=== PATIENT | male | born 1965 | race Caucasian/White ===

== ENCOUNTER 2017-08-21 14:07 | Observation (INO) | payer BC ==
[2017-08-21] MEDS ORDERED: LR 1,000 ML IV ONE (14:22)
[2017-08-21] MEDS ORDERED: LIDO/EPI 1% **for epidural** 30 ML SDV ONE (14:28)
[2017-08-21] MEDS ORDERED: OXYMETAZOLINE 30 ML NASAL SPRAY ONE ×2 (14:28→14:43)
--- NOTE | 2017-08-21 15:13 | PDANEPAE ---
ANE History of Present Illness 52 yo for septoplasty ANE Past Medical History - Cardiovascular History Hx Hypertension: No Hx Arrhythmias: No Hx Chest Pain: No Hx Coronary Artery / Peripheral Vascular Disease: No Hx CHF / Valvular Disease: No Hx Palpitations: No - Pulmonary History Hx COPD: No Hx Asthma/Reactive Airway Disease: No Hx Recent Upper Respiratory Infection: No Hx Oxygen in Use at Home: No Hx Sleep Apnea: Yes Pulmonary History Comment: SLEEP APNEA - Neurologic History Hx Cerebrovascular Accident: No Hx Seizures: No Hx Dementia: No - Endocrine History Hx Diabetes: No - Renal History Hx Renal Disorders: No - Liver History Hx Hepatic Disorders: No - Neurological & Psychiatric Hx Hx Neurological and Psychiatric Disorders: No - Cancer History Hx Cancer: No - Congenital Disorder History Hx Congenital Disorders: No - GI History Hx Gastrointestinal Disorders: No - Surgical History Prior Surgeries: GEN ABD, L HAND DIGIT AMPS, VASECTOMY ANE Review of Systems Review of Systems: - Exercise capacity METS (RN): 4 METS ANE Patient History - Allergies Allergies/Adverse Reactions: No Known Allergies Allergy (Verified 08/21/17 15:01) - Home Medications Home medications: home medication list seen and reviewed Home Medications: Sertraline HCl 75 mg PO 08/21/17 [Last Taken 08/20/17] - NPO status NPO Status: no food or drink >8 hours NPO Since - Liquids (Date): 08/21/17 NPO Since - Liquids (Time): 07:00 NPO Since - Solids (Date): 08/21/17 NPO Since - Solids (Time): 07:00 - Anes Hx Anes Hx: no prior problems - Smoking Hx Smoking Status: Never smoked - Family Anes Hx Family Hx Anesthesia Complications: NONE ANE Labs/Vital Signs - Vital Signs Blood Pressure: 154/93 Heart Rate: 93 Respiratory Rate: 18 O2 Sat (%): 99 Height: 2 ft 4.35 in Weight: 133.81 kg ANE Physical Exam - Airway Neck exam: FROM Mallampati Score: Class 3 Mouth exam: normal dental/mouth exam - Pulmonary Pulmonary: no respiratory distress - Cardiovascular Cardiovascular: regular rate and rhythym - ASA Status ASA Status: III ANE Anesthesia Plan Anesthesia Plan: general endotracheal anesthesia
[2017-08-21] MEDS ORDERED: MIDAZOLAM 2 MG/2 ML VIAL IVP ONE (15:14)
[2017-08-21] MEDS ORDERED: OXYMETAZOLINE 30 ML NASAL SPRAY EACHNARE ONE (15:14)
[2017-08-21] MEDS ORDERED: fentaNYL 100 MCG/2 ML INJ ONE (15:18)
[2017-08-21] MEDS ORDERED: REMIFENTANIL HCL 1 MG VIAL ONE (15:18)
[2017-08-21] MEDS ORDERED: PROPOFOL/EMULSION 500 MG/50 ML BOTTLE IV ONE (15:19)
--- NOTE | 2017-08-21 15:23 | PDHPUP ---
History & Physical Update H&P update statement: This history and physical update is based on an assessment of the patient which was completed after admission or registration (within 24 hours), but prior to the surgery/procedure. H&P update: H&P reviewed & patient examined, no change in patient's condition since H&P completed
--- NOTE | 2017-08-21 15:52 | POSTANESTH ---
Post Anesthetic Evaluation Cardiovascular Status: Tx Hyper/Hypo-tension Respiratory Status: Other, See Comment Level of Consciousness/Mental Status: Unconscious Pain Control: Adequate, Prn Tx Ordered Nausea/Vomiting Control: Adequate, Prn Tx Ordered Complications Possibly Related to Anesthesia: None Noted (in sicu on vent sedated)
[2017-08-21] MEDS: BACITRACIN ZINC 14.2 GM OINTTUBE TP ONE ×2 (16:11→17:07)
[2017-08-21] MEDS ORDERED: OXYMETAZOLINE 30 ML NASAL SPRAY EACHNARE PRN (16:52)
[2017-08-21] MEDS ORDERED: fentaNYL 100 MCG/2 ML INJ IVP PRN (16:55)
[2017-08-21] MEDS ORDERED: HYDROCODONE/APAP 5/325 TAB PO PRN ×2 (16:55→18:57)
[2017-08-21] MEDS ORDERED: ONDANSETRON 4 MG/2 ML VIAL IVP PRN ×2 (16:55→18:57)
[2017-08-21] MEDS ORDERED: NALOXONE HCL 0.4 MG/ML INJ IVP PRN (16:55)
--- NOTE | 2017-08-21 16:57 | POSTANESTH ---
Post Anesthetic Evaluation Cardiovascular Status: Normal, Stable Respiratory Status: Normal, Stable Level of Consciousness/Mental Status: Can Participate in Eval Pain Control: Adequate, Prn Tx Ordered Nausea/Vomiting Control: Adequate, Prn Tx Ordered Complications Possibly Related to Anesthesia: None Noted
--- NOTE | 2017-08-21 18:37 | POSTOPPROG ---
Post Op Note Date of Operation: 08/21/17 Surgeon: Herbert Chaidez Anesthesia: GET(General Endotracheal) Pre-op Diagnosis: Septal deviation, inferior turbinate hypertrophy Post-op Diagnosis: Septal deviation, inferior turbinate hypertrophy, b/l hafsa bullosa Indication: Septal deviation, inferior turbinate hypertrophy Procedure: Septoplasty, inferior turbinate reduction, b/l hafsa bullosa resection Findings: Septal deviation, inferior turbinate hypertrophy, b/l hafsa bullosa Inf/Abcess present in the surg proc area at time of surgery?: No Depth: Deep Incisional (Fascial) EBL: Minimal Complications: none Specimen(s): none
[2017-08-21] MEDS ORDERED: ONDANSETRON DISINTEGRATING 4 MG TAB PO PRN (18:57)
[2017-08-21] MEDS ORDERED: ACETAMINOPHEN 325 MG TAB PO PRN (18:57)
[2017-08-21] MEDS ORDERED: SERTRALINE HCL 25 MG TAB PO SCH (21:00)
[2017-08-22 03:57] VITALS: BP 130/82; RESP 18
[2017-08-22 09:02] VITALS: PULSE 87; TEMP 97.4; O2SAT 95
--- NOTE | 2017-08-22 11:27 | ASDISCHSUM ---
Discharge Information Plan Status: Medically Cleared to Leave: Discharge Date:08/22/2017 09:52 AM CM D/C Disposition: ADT D/C Disposition:Home, Routine, Self-Care Projected Discharge Date:08/22/2017 09:52 AM Transportation at D/C: Discharge Delay Reason: Follow-Up Date:08/22/2017 09:52 AM Discharge Slot: Final Diagnosis: Placement Information Patient Contact Information Contact Name:MARCIA Relationship:Daughter Address:[address] [place] Work Phone: City:[place] [facility] Phone: State/Zip Code:[place] [address] Email: Financial Information Financial Class:HMO and PPO Plans Primary Plan Desc:[employer] PLAN Primary Plan Number:[id number] Secondary Plan Desc: Secondary Plan Number: Assessment Information Intervention Information
--- NOTE | 2017-10-04 21:17 | GOP ---
[f rep st] OPERATIVE REPORT DATE OF OPERATION: 08/21/2017 SURGEON: Herbert Chaidez MD ANESTHESIA: General. PREOPERATIVE DIAGNOSIS: Obstructive septal deviation, bilateral inferior turbinate hypertrophy. POSTOPERATIVE DIAGNOSIS: 1. Obstructive septal deviation, bilateral inferior turbinate hypertrophy. 2. Bilateral hafsa bullosa. PROCEDURE PERFORMED: FINDINGS: SPECIMENS: None. ESTIMATED BLOOD LOSS: Minimal. INDICATIONS: Patient was found in the office to have a long history of nasal obstruction and this wa s found to be secondary to septal deviation and inferior turbinate hypertrophy. Given his history an d findings, he was determined to be an appropriate candidate for the above-stated procedures. The ri sks, benefits, alternatives to the procedures were explained at length to the patient who stated he u nderstood and wished to go forward with the procedure. DESCRIPTION OF PROCEDURE: Patient was brought to the operating room by Anesthesiology and placed on the operating table. Once appropriate level of anesthesia was achieved, bilateral nasal cavities wer e injected with 1% lidocaine with 1:100,000 epinephrine at the bilateral inferior turbinates, septum, and columella. Bilateral nasal cavities were then packed with Afrin-soaked pledgets. The patient w as then prepped and draped in usual fashion. The remainder of the procedure was performed under 0 de gree rigid video endoscopic visualization. A left hemitransfixion incision was completed with a needle tip Bovie electrocautery. The septal fla p was elevated in a submucoperichondrial and submucoperiosteal plane using a combination of Radha an d suction Malcom elevators. Given the left-sided hafsa bullosa, it was difficult to elevate the sept al flap in an appropriate manner. Visualization of the middle turbinates revealed significant middle turbinate hypertrophy with likely finding of hafsa bullosa. A sickle knife was used to vertically cut into the middle turbinate. It was, in fact, found to be a hafsa bullosa. The lateral portion o f the hafsa bullosa was excised using a combination of sickle knife and straight going through cut. This allowed for appropriate mild lateralization of the middle turbinate and allowed access for the elevation of the septal flap. The vertical incision at the bony cartilaginous junction of the septum was completed with the Radha elevator. Coming through to the contralateral side to elevate the muc salvatore off the right bony septum, again the middle turbinates on the contralateral nasal cavity were fou nd to be obstructive. This was visualized with the endoscope and again the middle turbinate was foun d to be hypertrophic. Again a sickle knife was used to bisect the hafsa bullosa. The lateral aspec t was then removed with a combination of straight going through cut and a sickle knife. Following a mild outfracture of the middle turbinate, the septal flap was able to be elevated appropriately. A D -knife was used to incise the deviated portion of nasal septal cartilage. Care was taken to leave a cm of both dorsal and caudal septal support. The incised portion of cartilage was then elevated off the contralateral mucosa with a Malcom elevator. This was then delivered with a Karen. The bony septum was then cut superiorly with a straight Cabezas scissor. The deviated portions of bony septum we re then removed with the Karen. The Karen was also used to remove residual cartilage and bon e along the maxillary crest. There was minimal bleeding within the surgical bed. The hemitransfixio n incision was closed with 2 4-0 chromic interrupted sutures. On endoscopy, the septum was seen to b e straight and nonobstructive bilaterally at this point. The bilateral middle turbinates were then i nfractured. Given his prior complaints of recurrent sinusitis following upper respiratory infection, the opening of the previously obstructed middle meatus was also deemed to be beneficial. Bilateral inferior turbinates were then resected in a submucosal plane using a turbinate microdebrider. This w as performed 1st at the right and then at the left. There was substantial soft tissue reduction with both of these procedures. Once completed, the right and then the left turbinates were infractured a nd outfractured with a Malcom elevator. There was good lateralization bilaterally. At the end of thi s, there was excellent visualization from the nasal vestibule through to the nasopharynx on endoscopy . There was minimal bleeding at the surgical sites. Bilateral nasal cavities were packed with Afrin -soaked pledgets. Once these were removed, the surgical bed was again inspected for bleeding. None was found. Bacitracin coated Perdue splints were placed in bilateral nasal cavities and secured in pl dalila using a single 3-0 Prolene suture. The patient tolerated the procedure well and was extubated in the operating room prior to being transferred in good condition to the postanesthesia care unit. COMPLICATIONS: None. /[id number]/MODL
--- NOTE | 2017-10-07 13:08 | GDS ---
[f rep st] DISCHARGE SUMMARY REASON FOR ADMISSION: Patient was admitted following septoplasty and inferior turbinate reduction se condary to inability to maintain appropriate saturations. In the postop area, he required oxygen to maintain saturations above 92%. He stayed overnight and was able to saturate over 92% on room air th roughout. He had good pain control and was able to resume activities of daily living almost immediat darrin postoperatively. Given this, he was deemed appropriate for discharge on 08/22/2017. He was disc harged with pain medication and antibiotics and had instructions to follow up in ENT Clinic in 1 week . /[id number]/MODL
[2017-10-08] MEDS ORDERED: CHOLECALCIFEROL VIT D3 1,000 UNITS TAB PO SCH (09:00)
[2017-10-08] MEDS ORDERED: MULTIVITAMINS 1 EACH TAB PO SCH (09:00)
[2017-10-08] MEDS ORDERED: OMEGA-3 FATTY ACIDS 1,000 MG CAP PO SCH (09:00)
== END 2017-08-22 09:52 | disposition home or self-care (01) ==
LOC: FSGY 14:07 → F1N 18:57
PROVIDERS: ADMIT Otolaryngology; ATTEND Otolaryngology
PROC: 09BL8ZZ Excision of Nasal Turbinate, Via Natural or Artificial Opening Endoscopic (ICD-10-PCS; principal; 2017-08-21 15:30)
PROC: 095L8ZZ Destruction of Nasal Turbinate, Via Natural or Artificial Opening Endoscopic (ICD-10-PCS; principal; 2017-08-21 15:30)
PROC: 09BM8ZZ Excision of Nasal Septum, Via Natural or Artificial Opening Endoscopic (ICD-10-PCS; principal; 2017-08-21 15:30)
DX: J34.2 Deviated nasal septum (principal); J34.3 Hypertrophy of nasal turbinates; J34.89 Other specified disorders of nose and nasal sinuses; G47.30 Sleep apnea, unspecified; Z82.49 Family history of ischemic heart disease and other diseases of the circulatory system
CPT/HCPCS: 30140; 30520; 31240; G0378; J2250; J2704; J3010